=== PATIENT | male | born 1945 | race Caucasian/White ===

== ENCOUNTER → 2016-10-20 | Day surgery (SDC) | payer MEDICARE, OTHER ==
[~2016-10-20] MED LIST: DILANTIN; DILANTIN PO; FLEXERIL10 M1 PO; MOTRIN600 MG PO; NON-ASPIRIN PA500 M2 PO; PHENOBARBITAL100 MG PO; PHENOBARBITAL97.2 MG; PHENOBARBITAL97.2 MG PO; VITAMIN D250000 UNIT PO
--- NOTE | ~2016-10-20 | OR ---
Unit #: [id number] #: [id number] Patient: SONIA BULLOCK [id number] [address] [place], [place] [address] [id number] O MR#: [id number] NAME: SONIA BULLOCK. ROOM: Date of Procedure: 10/20/2016 Admission Date: 10/20/2016 Surgeon: Sam Cantor M.D. : 1945 Attending Physician: Sam Cantor M.D. Primary Care Physician: Evelin Jansen M.D. OPERATIVE REPORT PROCEDURE PERFORMED Colonoscopy aborted. INDICATIONS FOR PROCEDURE A 71-year-old gentleman with history of large polyps in the colon that were removed piecemeal, here for repeat colonoscopy to ensure complete polypectomy. 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 He was positive for Cologuard also. MEDICATIONS Monitored anesthesia. POSTOPERATIVE FINDINGS Colonoscopy started, but aborted right away because of presence of hard stools in the rectum. PLAN The patient to be rescheduled with 2 day extended prep. DESCRIPTION OF PROCEDURE The patient was explained of the procedure, risks, and benefits along with risks and benefits of anesthesia. He was brought to the endoscopy room. Propofol anesthesia was given. Rectal exam was done, which was normal. Colonoscope was lubricated, passed up the rectum. At this point, I saw a large amount of stool and the scope was pulled out. He tolerated it well. No major complications were seen. Dictated by... Placido Kidd/jarrett TD: 10/21/2016 00:39 JOB #: [id number] Unit #: [id number] #: [id number] Patient: SONIA BULLOCK OPERATIVE REPORT Page 1 of 1 X Sam Cantor MD X PROCEDURE OPERATIVE NOTE
== END | disposition home or self-care (01) ==
LOC: COPS 09:15
DX: Z12.11 Encounter for screening for malignant neoplasm of colon (principal); Z86.010 Personal history of colon polyps; Z79.899 Other long term (current) drug therapy; Z98.41 Cataract extraction status, right eye; Z98.42 Cataract extraction status, left eye; Z98.890 Other specified postprocedural states

== ENCOUNTER → 2016-10-29 | Day surgery (SDC) | payer MEDICARE, OTHER ==
--- NOTE | ~2016-10-29 | OR ---
Unit #: [id number] #: [id number] Patient: SONIA BULLOCK [id number] [address] [address] [id number] O MR#: [id number] NAME: SONIA BULLOCK. ROOM: Date of Procedure: 10/29/2016 Admission Date: 10/29/2016 Surgeon: Sam Cantor M.D. : 1945 Attending Physician: Sam Cantor M.D. Referring Physician: Sam Cantor M.D. Primary Care Physician: Evelin Jansen M.D. OPERATIVE REPORT PROCEDURE PERFORMED Colonoscopy with snare polypectomy. INDICATIONS FOR PROCEDURE The patient with history of 2 large polyps, one in sigmoid and rectum, both were showing high-grade dysplasia and were removed piecemeal, undergoing colonoscopy to look for any remnant polyp as well as any other polyps or masses. MEDICATIONS Monitored anesthesia. POSTOPERATIVE FINDINGS 1. Previous polypectomy sites in both places identified by tattooing, showed no recurrent disease. 2. Small polyp in sigmoid colon, 5 mm, snared and sent for histopathology. 3. Rest of the exam was normal. 4. Prep was good. PLAN Follow up on the pathology report. Further recommendations to follow. DESCRIPTION OF PROCEDURE The patient was explained of the procedure, risks, and benefits along with risks and benefits of anesthesia. He was brought to the endoscopy room. Propofol anesthesia was given. Rectal exam was done, which was normal. Colonoscope was lubricated, passed up the rectum, advanced under direct vision all the way to the cecum. Cecum was identified by ileocecal valve and appendiceal orifice. I then started pull the scope out carefully looking. Polyp in sigmoid colon, 6 mm, snared and sent for pathology. Tattooing was identified to look for the previous polypectomy site, which was completely normal. I retroflexed in the rectum, small hemorrhoids seen. The scope was gently pulled out. He tolerated it well. No major complications were seen. Dictated by... Placido Kidd/jarrett Unit #: [id number] #: [id number] Patient: SONIA BULLOCK TD: 10/30/2016 03:10 JOB #: [id number] OPERATIVE REPORT Page 1 of 1 X Sam Cantor MD PROCEDURE OPERATIVE NOTE
== END | disposition home or self-care (01) ==
LOC: COPS 06:48
DX: Z12.11 Encounter for screening for malignant neoplasm of colon (principal); D12.5 Benign neoplasm of sigmoid colon; Z79.899 Other long term (current) drug therapy; Z98.41 Cataract extraction status, right eye; Z98.42 Cataract extraction status, left eye; Z98.890 Other specified postprocedural states
CPT/HCPCS: 88305

== ENCOUNTER → 2017-03-08 | Outpatient (CLI) | payer MEDICARE, OTHER | END | disposition home or self-care (01) | LOC: CECH 13:15 | DX: R01.1 Cardiac murmur, unspecified (principal); I51.7 Cardiomegaly; I50.30 Unspecified diastolic (congestive) heart failure | CPT/HCPCS: 93306 ==

== ENCOUNTER → 2017-03-24 | Outpatient (CLI) | payer MEDICARE, OTHER ==
--- NOTE | ~2017-03-24 | TH ---
Unit #: [id number] #: [id number] Patient: SONIA BULLOCK [id number] [address] [address] [id number] O MR#: [id number] NAME: SONIA BULLOCK : 1945 SEX: M STUDY DATE/TIME: 03/25/2017 UNIT: [facility] ROOM: STUDY DESCRIPTION: Imaging and ECG Attending Physician: Kristina Berry M.D. Referring Physician: Kristina Berry M.D. Primary Care Physician: Evelin Jansen M.D. CARDIOLOGY REPORT EXAM Stress nuclear and ECG INDICATION Abnormal ECG, cardiomyopathy, hypertension, dyslipidemia, for the diagnosis of obstructive coronary disease contributing to the patient's cardiomyopathy in a patient unable to exercise adequately. SUMMARY Patient received Lexiscan intravenously while at rest as well as technetium-99m Cardiolite 11.21 and 36.0 mCi at rest and stress respectively. Appropriate views were obtained. FINDINGS The patient's heart rate increased from 64 to 81, blood pressure decreased from 121/52 to 100/52. The resting ECG was abnormal with Q waves in V3 and V4, suggestive of prior anterior infarction, and flattened ST-segments in V3. With stress there were no diagnostic ST shifts, no dysrhythmias, and no heart block. Perfusion images demonstrate significant intestinal artifact at rest, with no discrete perfusion defect at rest or stress. End-diastolic volume is large at 149 mL. Ejection fraction quantitatively is 54%. Qualitatively appears to be close to 45%, generalized hypokinesis. Planar images demonstrate no significant patient motion at rest or stress. LV is enlarged. There is poorly seen RV but appears upper limits of normal in size. No increased lung uptake. Summed stress score is 0. IMPRESSION 1. Myocardial perfusion scan demonstrates no ischemia or infarction. 2. Mild generalized hypokinesis with a low normal ejection fraction. 3. Moderate left ventricular enlargement. Dictated by... Kristian Marquez M.D. NIK/bruno Unit #: [id number] #: [id number] Patient: SONIA BULLOCK TD: 03/26/2017 16:03 JOB #: [id number] CARDIOLOGY REPORT Page 1 of 1 X Kristian Marquez MD CARDIOLOGY REPORT
== END | disposition home or self-care (01) ==
LOC: CNUC 08:21
DX: I42.9 Cardiomyopathy, unspecified (principal); R79.89 Other specified abnormal findings of blood chemistry; R94.31 Abnormal electrocardiogram [ECG] [EKG]; I51.89 Other ill-defined heart diseases
CPT/HCPCS: 78452; 93017; A9500; J2785